=== PATIENT | male | born 1995 | race African-American/Black ===

== ENCOUNTER 2016-07-30 18:03 | Emergency (ER) | payer OTHER ==
[~2016-07-30] VITALS: Ht 175.3 cm; Wt 89.6 kg
[2016-07-30 18:05] VITALS: BP 157/84
[2016-07-30] MEDS ORDERED: diphenhydrAMINE 25 MG CAP PO ONE (18:30)
[2016-07-30] MEDS ORDERED: methylPREDNISolone INJ 125 MG/2 ML VIAL (J2930) IM ONE (18:30)
[2016-07-30] MEDS ORDERED: PRED20TA PO (18:45)
== END 2016-07-30 18:53 | disposition home or self-care (01) ==
LOC: M ED 18:33
DX: H02.841 Edema of right upper eyelid (principal); H02.845 Edema of left lower eyelid
CPT/HCPCS: 96372; 99282; J2930

== ENCOUNTER 2016-09-18 12:49 | Emergency (ER) | payer OTHER ==
[~2016-09-18] VITALS: Ht 175.3 cm; Wt 86.4 kg
[~2016-09-18 12:49] MED LIST: PRED20TA PO
[2016-09-18] MEDS ORDERED: diphenhydrAMINE INJ 50MG/ML VIAL (J1200) IM ONE (15:30)
[2016-09-18 16:03] LABS: BASO % 0.5 % (0.0-1.0); EOS # 0.2 K/mm3 (0.0-0.50); EOS % 1.7 % (0.0-3.0); LARGE UNSTAINED CELL # 0.1 K/mm3 (0.0-0.4); LARGE UNSTAINED CELL % 1.2 % (0.0-4.0); LYMPH # 2.3 K/mm3 (1.5-6.5); LYMPH % 23.8 % (24.0-44.0); MEAN CORPUSCULAR HEMOGLOBIN 29.5 pg (27.0-33.0); MEAN CORPUSCULAR HGB CONC 33.6 g/dl (32.0-36.5); MEAN CORPUSCULAR VOLUME 87.6 fl (80.0-96.0); MONO # 0.5 K/mm3 (0.0-0.8); MONO % 5.2 % (0.0-5.0); NEUTROPHILS # 6.3 K/mm3 (1.8-7.7); NEUTROPHILS % 67.6 % (36.0-66.0); PLATELET COUNT, AUTOMATED 426 k/mm3 (150-450); WHITE BLOOD COUNT 9.3 K/mm3 (4.0-10.0)
[2016-09-18 16:23] LABS: ALBUMIN 4.3 GM/DL (3.2-5.2); ALBUMIN/GLOBULIN RATIO 1.08 (1.00-1.93); ALKALINE PHOSPHATASE 75 U/L (45-117); ALT/SGPT 34 U/L (12-78); ANION GAP 7 MEQ/L (8-16); AST/SGOT 30 U/L (15-37); BILIRUBIN,TOTAL 0.4 MG/DL (0.2-1.0); BLOOD UREA NITROGEN 14 MG/DL (7-18); CALCIUM LEVEL 9.4 MG/DL (8.5-10.1); CARBON DIOXIDE LEVEL 29 MEQ/L (21-32); CHLORIDE LEVEL 104 MEQ/L (98-107); CREATININE FOR GFR 0.95 MG/DL (0.70-1.30); GLOMERULAR FILTRATION RATE > 60.0 (>60); GLUCOSE, FASTING 90 MG/DL (70-105); POTASSIUM SERUM 4.3 MEQ/L (3.5-5.1); SODIUM LEVEL 140 MEQ/L (136-145); TOTAL PROTEIN 8.3 GM/DL (6.4-8.2)
[2016-09-18 16:41] VITALS: BP 148/77
== END 2016-09-18 16:51 | disposition home or self-care (01) ==
LOC: M ED 12:49
DX: K52.89 Other specified noninfective gastroenteritis and colitis (principal); Z91.018 Allergy to other foods

== ENCOUNTER 2016-10-26 15:06 | Emergency (ER) | payer OTHER ==
[~2016-10-26] VITALS: Ht 175.3 cm; Wt 81.8 kg
[2016-10-26 15:07] VITALS: BP 157/80
[2016-10-26] MEDS ORDERED: AZITHROMYCIN 250 MG TAB PO ONE (15:45)
[2016-10-26] MEDS ORDERED: cefTRIAXone SOD 250 MG VIAL (J0696) IM ONE (15:45)
[2016-10-26] MEDS ORDERED: DOXY100C37 PO (15:54)
== END 2016-10-26 16:25 | disposition home or self-care (01) ==
LOC: M ED 15:06
DX: A56.8 Sexually transmitted chlamydial infection of other sites (principal); N34.2 Other urethritis
CPT/HCPCS: 87491; 87591; 96372; 99283; J0696

== ENCOUNTER 2017-01-15 12:18 | Emergency (ER) | payer OTHER ==
[~2017-01-15] VITALS: Ht 175.3 cm; Wt 84.1 kg
[~2017-01-15 12:18] MED LIST changes: +DOXY100C37 PO
[2017-01-15] MEDS ORDERED: cefTRIAXone SOD 250 MG VIAL (J0696) IM ONE (13:15)
[2017-01-15] MEDS ORDERED: AZITHROMYCIN 250 MG TAB PO ONE (13:15)
[2017-01-15 13:48] VITALS: BP 152/87
== END 2017-01-15 13:49 | disposition home or self-care (01) ==
LOC: M ED 12:18
DX: N34.2 Other urethritis (principal)
CPT/HCPCS: 81001; 87491; 87591; 96372; 99283; J0696

== ENCOUNTER 2017-09-10 12:20 | Emergency (ER) | payer OTHER ==
[2017-09-10] MEDS: AZITHROMYCIN 250 MG TAB PO (13:05)
[2017-09-10] MEDS: cefTRIAXone SOD 250 MG VIAL (J0696) IM (13:05)
[2017-09-10 16:15] LABS: CHLAMYDIA DNA AMPLIFICATION POSITIVE (NEGATIVE); GC DNA AMPLIFICATION NEGATIVE (NEGATIVE)
== END 2017-09-10 13:23 | disposition home or self-care (01) ==
LOC: M ED 12:20
DX: Z20.2 Contact with and (suspected) exposure to infections with a predominantly sexual mode of transmission (principal)
CPT/HCPCS: J0696